=== PATIENT | male | born 1985 | race Caucasian/White ===

== ENCOUNTER 2016-11-03 01:22 | Emergency (ER) | payer BC ==
[2016-11-03] MEDS ORDERED: NALOXONE 1 MG/ML 2 ML SYRINGE IVP STA (02:06)
[2016-11-03] MEDS ORDERED: SODIUM CHLORIDE 0.9% 1,000 ML IV STA (02:06)
[2016-11-03] MEDS ORDERED: ONDANSETRON 8 MG in SODIUM CHLORIDE 0.9% 50 ML IVPB ONE (02:09)
[2016-11-03] MEDS ORDERED: FAMOTIDINE 20 MG/2 ML VIAL IV STA (02:09)
[2016-11-03 02:16] LABS: Basophils # (A) 0.1 k/uL (0-0.2); Basophils % (A) 1 %; CH 32.7; CHCM 32.5; Eosinophils # (A) 0.1 k/uL (0-0.7); Eosinophils % (A) 1 %; HCT 49.8 % (39.0-53.0); HDW 2.17; HGB 15.9 gm/dL (13.0-17.5); Luc # (Auto) 0.09; Luc % (Auto) 1; Lymphocytes # (A) 0.7 k/uL (1.0-4.8); Lymphocytes % (A) 10 %; MCH 32.4 pg (25.0-35.0); MCV 101.1 fL (80.0-100.0); Mean Platelet Volume 6.8; Monocytes # (A) 0.3 k/uL (0-1.0); Monocytes % (A) 4 %; Neutrophils # (A) 6.1 k/uL (1.3-7.7); Neutrophils % (A) 83 %; RBC 4.92 m/uL (4.30-5.90); RDW 12.5 % (11.5-15.5); WBC 7.3 k/uL (3.8-10.6); WBC (Perox) 7.09
[2016-11-03 02:25] LABS: ALT 38 U/L (21-72); AST 35 U/L (17-59); Alcohol 11 mg/dL; Alkaline Phosphatase 75 U/L (38-126); Amylase 146 U/L (30-110); Anion Gap 13 mmol/L; Blood Urea Nitrogen 18 mg/dL (9-20); Calcium 10.4 mg/dL (8.4-10.2); Carbon Dioxide 27 mmol/L (22-30); Chloride 106 mmol/L (98-107); Glucose 124 mg/dL (74-99); Non-African American GFR(MDRD) >60 (>60 ml/min/1.73 sqM); Potassium 4.7 mmol/L (3.5-5.1); Sodium 146 mmol/L (137-145); Total Bilirubin 0.9 mg/dL (0.2-1.3); Total Protein 8.1 g/dL (6.3-8.2)
--- NOTE | 2016-11-03 02:41 | XR ---
EXAM: XR Chest, 1 View CLINICAL HISTORY: Reason: Rule out aspiration TECHNIQUE: Frontal view of the chest. COMPARISON: No relevant prior studies available. FINDINGS: Lungs: Unremarkable. No consolidation. Pleural space: Unremarkable. No pneumothorax. Heart: Unremarkable. No cardiomegaly. Mediastinum: Unremarkable. Bones/joints: No acute osseous abnormality. IMPRESSION: No acute cardiopulmonary process.
[2016-11-03] MEDS ORDERED: METOCLOPRAMIDE 5 MG/ML 2 ML VIAL IVP STA (03:38)
[2016-11-03] MEDS ORDERED: SODIUM CHLORIDE 0.9% 500 ML IV ONE (03:39)
--- NOTE | 2016-11-03 05:01 | ED ---
Nausea/Vomiting/Diarrhea HPI - General Chief complaint: Nausea/Vomiting/Diarrhea Stated complaint: alcohol Time Seen by Provider: 11/03/16 02:00 Source: patient Mode of arrival: ambulatory Limitations: no limitations - History of Present Illness Initial comments: Neris De is a gentleman presented with the severe vomiting today, he threw up about 5 times today and didn't eat whole day, he has been drinking according to him he said he had a 4 beers today also complaining about some discomfort in his epigastric area. No fever no chills no headaches no neck stiffness - Related Data Previous Rx's Medication Instructions Recorded Metoclopramide [Reglan] 10 mg PO Q8HR #20 tab 11/03/16 Allergies Allergy/AdvReac Type Severity Reaction Status Date / Time No Known Allergies Allergy Verified 08/25/15 09:22 Review of Systems ROS Statement: Those systems with pertinent positive or pertinent negative responses have been documented in the HPI. ROS Other: All systems not noted in ROS Statement are negative. Past Medical History Past Medical History: No Reported History Additional Past Medical History / Comment(s): Pt states he has no medical history. History of Any Multi-Drug Resistant Organisms: None Reported Past Surgical History: No Surgical Hx Reported Additional Past Surgical History / Comment(s): Pt states he has never had any surgeries. Past Anesthesia/Blood Transfusion Reactions: Unable to Obtain Past Psychological History: No Psychological Hx Reported Additional Psychological History / Comment(s): Pt resides with his 7 yr old son. Pt is independent. He drives. Smoking Status: Never smoker Past Alcohol Use History: Daily Additional Past Alcohol Use History / Comment(s): Pt states on occasion, he will drink beer and drank last Tuesday and then symptoms began last . Past Drug Use History: Marijuana Additional Drug Use History / Comment(s): Pt states he used to smoke marijuana daily but has not had any in the past several months. - Past Family History Father Family Medical History: Diabetes Mellitus Additional Family Medical History / Comment(s): Father is 56 yrs old. Mother History Unknown: Yes Family Medical History: Unable to Obtain Additional Family Medical History / Comment(s): Pt does not know Mother's medical hx-they are not around each other much. General Exam - General Exam Comments Initial Comments: General: The patient is awake and alert, in no distress, looks dehydrated Skin: Skin is warm and dry and no rashes or lesions are noted. Eye: Pupils are equal, round and reactive to light, extra-ocular movements are intact; there is normal conjunctiva bilaterally. Ears, nose, mouth and throat: There are moist mucous membranes and no oral lesions. Neck: The neck is supple, there is no tenderness or JVD. Cardiovascular: There is a regular rate and rhythm. No murmur, rub or gallop is appreciated. Respiratory: To auscultation bilateral, no wheezing no rhonchi no distress respiratory goncalves noticed Gastrointestinal: Tender in epigastric area, positive bowel sounds. Back: There is no tenderness to palpation in the midline. There is no obvious deformity. Musculoskeletal: Normal ROM, no tenderness, There is no pedal edema. There is no calf tenderness or swelling. No cords were appreciated. Neurological: CN II-XII intact, Cranial nerves III through XII are intact. There are no obvious motor or sensory deficits. Coordination appears grossly intact. Speech is normal. Psychiatric: Cooperative, appropriate mood & affect, normal judgment. Limitations: no limitations Course Vital Signs 11/03/16 11/03/16 01:38 03:02 Temperature 97.4 F L Pulse Rate 60 68 Respiratory 18 16 Rate Blood Pressure 134/88 118/74 O2 Sat by Pulse 100 100 Oximetry Labs are reviewed, CBC, compressive metabolic panel are negative except amylase of the time 146 chest x-ray did not reveal any free air under the diaphragm no signs of perforation, patient was giving him given 1.5 L of fluid he was given some Zofran] and that helped him with this symptoms able got home with Reglan and Zantac Medical Decision Making - Lab Data Result diagrams: 11/03/16 01:50 11/03/16 01:50 Lab Results 11/03/16 11/03/16 11/03/16 Range/Units 01:50 01:50 03:05 WBC 7.3 (3.8-10.6) k/uL RBC 4.92 (4.30-5.90) m/uL Hgb 15.9 (13.0-17.5) gm/dL Hct 49.8 (39.0-53.0) % MCV 101.1 H (80.0-100.0) fL MCH 32.4 (25.0-35.0) pg MCHC 32.0 (31.0-37.0) g/dL RDW 12.5 (11.5-15.5) % Plt Count 334 (150-450) k/uL Neutrophils % 83 % Lymphocytes % 10 % Monocytes % 4 % Eosinophils % 1 % Basophils % 1 % Neutrophils # 6.1 (1.3-7.7) k/uL Lymphocytes # 0.7 L (1.0-4.8) k/uL Monocytes # 0.3 (0-1.0) k/uL Eosinophils # 0.1 (0-0.7) k/uL Basophils # 0.1 (0-0.2) k/uL Sodium 146 H (137-145) mmol/L Potassium 4.7 (3.5-5.1) mmol/L Chloride 106 (98-107) mmol/L Carbon Dioxide 27 (22-30) mmol/L Anion Gap 13 mmol/L BUN 18 (9-20) mg/dL Creatinine 1.10 (0.66-1.25) mg/dL Est GFR (MDRD) Af Amer >60 (>60 ml/min/1.73 sqM) Est GFR (MDRD) Non-Af >60 (>60 ml/min/1.73 sqM) Glucose 124 H (74-99) mg/dL Calcium 10.4 H (8.4-10.2) mg/dL Total Bilirubin 0.9 (0.2-1.3) mg/dL AST 35 (17-59) U/L ALT 38 (21-72) U/L Alkaline Phosphatase 75 (38-126) U/L Total Protein 8.1 (6.3-8.2) g/dL Albumin 5.2 H (3.5-5.0) g/dL Amylase 146 H (30-110) U/L Lipase 111 (23-300) U/L Urine Opiates Screen Not Detected (NotDetected) Ur Oxycodone Screen Not Detected (NotDetected) Urine Methadone Screen Not Detected (NotDetected) Ur Propoxyphene Screen Not Detected (NotDetected) Ur Barbiturates Screen Not Detected (NotDetected) U Tricyclic Antidepress Not Detected (NotDetected) Ur Phencyclidine Scrn Not Detected (NotDetected) Ur Amphetamines Screen Not Detected (NotDetected) U Methamphetamines Scrn Not Detected (NotDetected) U Benzodiazepines Scrn Not Detected (NotDetected) Urine Cocaine Screen Detected H (NotDetected) U Marijuana (THC) Screen Detected H (NotDetected) Serum Alcohol 11 mg/dL Disposition Clinical Impression: Nausea & vomiting Disposition: HOME SELF-CARE Condition: Good Instructions: Acute Nausea and Vomiting (ED) Prescriptions: Metoclopramide [Reglan] 10 mg PO Q8HR #20 tab Referrals: None,Stated [Primary Care Provider] - 1-2 days
[2016-11-03 05:12] VITALS: BP 118/78; PULSE 65; RESP 18; TEMP 97.6
== END 2016-11-03 05:11 | disposition home or self-care (01) ==
LOC: EC 01:22
DX: R11.2 Nausea with vomiting, unspecified (principal); R10.816 Epigastric abdominal tenderness; R19.7 Diarrhea, unspecified
CPT/HCPCS: 82075; 36415; 80053; 82150; 83690; 85025; 80306; 80320; 71010; 99284; 96365; 96375 ×3; 96361; J2765; J2405; J2310

== ENCOUNTER → 2018-07-26 | Outpatient (CLI) | payer OTHER ==
--- NOTE | 2018-07-26 17:29 | XR ---
EXAMINATION TYPE: XR cervical spine comp DATE OF EXAM: 07/26/2018 COMPARISON: NONE HISTORY: Neck pain TECHNIQUE: 5 views FINDINGS: The cervical vertebra have normal spacing and alignment. Posterior elements are intact. Tunde ral foramina are widely patent. Atlantoaxial facet joint is normal. There are no cervical ribs. IMPRESSION: Negative cervical spine exam.
--- NOTE | 2018-07-26 17:30 | XR ---
EXAMINATION TYPE: XR lumbar spine 2 or 3V DATE OF EXAM: 07/26/2018 COMPARISON: NONE HISTORY: Back pain TECHNIQUE: 3 views FINDINGS: Vertebra have normal spacing and alignment. Posterior elements are intact. There is no comp ression fracture. Sacroiliac joints are normal IMPRESSION: Negative lumbar spine exam.
== END | disposition home or self-care (01) ==
LOC: RADXRMAIN 15:27
PROVIDERS: ATTEND Emergency Medicine
DX: S13.4XXA Sprain of ligaments of cervical spine, initial encounter (principal); S33.5XXA Sprain of ligaments of lumbar spine, initial encounter
CPT/HCPCS: 72050; 72100

== ENCOUNTER → 2019-05-18 | Outpatient (CLI) | payer OTHER ==
--- NOTE | 2019-05-18 09:02 | XR ---
EXAMINATION TYPE: XR knee complete RT DATE OF EXAM: 05/18/2019 COMPARISON: None HISTORY: Pain from twisting injury TECHNIQUE: Three-view right knee FINDINGS: No acute fractures or dislocations are evident. Joint spaces are preserved. No joint effusi on is evident. Follow-up exams can be performed 7-10 days from acute trauma for continued pain. IMPRESSION: 1. Normal three-view right knee
--- NOTE | 2019-05-18 09:14 | XR ---
EXAMINATION TYPE: XR thoracic spine complete DATE OF EXAM: 05/18/2019 COMPARISON: None HISTORY: Pain from twisting injury TECHNIQUE: Three-view thoracic spine FINDINGS: There are 12 thoracic type vertebral bodies. Pedicles are intact. Disc heights are preserve d. Vertebral body heights are preserved. Mild scoliosis present with convexity to the right centered at T7. This could be positional. This may be related to muscle spasm. IMPRESSION: 1. Mild scoliosis which can be related to muscle spasm or positioning
== END | disposition home or self-care (01) ==
LOC: RADXRMAIN 08:31
PROVIDERS: ATTEND Emergency Medicine
DX: M41.84 Other forms of scoliosis, thoracic region (principal); S83.91XA Sprain of unspecified site of right knee, initial encounter
CPT/HCPCS: 72072

== ENCOUNTER → 2019-06-13 | Outpatient (CLI) | payer OTHER ==
--- NOTE | 2019-06-13 22:28 | MR ---
EXAMINATION TYPE: MR knee RT wo con DATE OF EXAM: 06/13/2019 COMPARISON: X-ray 05/18/2019 HISTORY: Pain from twisting injury TECHNIQUE: Multiplanar, multisequence imaging of the right knee is performed without IV contrast. FINDINGS: MEDIAL MENISCUS: There is linear signal posterior horn the medial meniscus compatible with a simple l inear tear. LATERAL MENISCUS: Anterior and posterior horns are intact without tear. CRUCIATE LIGAMENTS: Is increased signal in the posterior fibers of the ACL compatible with strain. Pa rtial tear in the differential diagnosis. COLLATERAL LIGAMENTS: The medial collateral ligament and lateral collateral ligament complex are inta ct and unremarkable. EXTENSOR MECHANISM: Visualized quadriceps and patellar tendons are intact. Small amount of fluid is s een in the suprapatellar bursa. EFFUSION: No significant suprapatellar joint effusion. POPLITEAL CYST: No popliteal/ivan cyst. TRICOMPARTMENT SPACES: Joint spaces are preserved with no erosive changes. CARTILAGE: Cartilage is intact BONE MARROW SIGNAL: No focal abnormal marrow signal is appreciated. IMPRESSION: 1. Linear tear posterior horn medial meniscus. 2. ACL sprain with suspected partial tear of the posterior fibers. No through thickness tear identifi ed.
== END | disposition home or self-care (01) ==
LOC: RADMRIMAIN 20:48
PROVIDERS: ATTEND Emergency Medicine
DX: S83.241A Other tear of medial meniscus, current injury, right knee, initial encounter (principal)

== ENCOUNTER → 2019-06-19 | Outpatient (CLI) | payer OTHER ==
--- NOTE | 2019-06-19 17:20 | US ---
EXAMINATION TYPE: US venous doppler duplex LE RT DATE OF EXAM: 06/19/2019 5:02 PM COMPARISON: NONE CLINICAL HISTORY: S83.91XD M79.600. recent right knee injury, swelling and pain, no h/o dvt SIDE PERFORMED: Right TECHNIQUE: The lower extremity deep venous system is examined utilizing real time linear array sonog ebrnard with graded compression, doppler sonography and color-flow sonography. VESSELS IMAGED: External Iliac Vein (EIV) Common Femoral Vein Deep Femoral Vein Greater Saphenous Vein * Femoral Vein Popliteal Vein Small Saphenous Vein * Proximal Calf Veins (* superficial vessels) Right Leg: Appears negative for DVT *tried to connect with [email or web address] as order states after 5pm, but only reached disconnected phone with number written on order. IMPRESSION: Negative exam. No evidence of deep venous thrombosis in the right leg.
== END | disposition home or self-care (01) ==
LOC: RAD 16:45
PROVIDERS: ATTEND Emergency Medicine
DX: M79.604 Pain in right leg (principal); S83.91XD Sprain of unspecified site of right knee, subsequent encounter